=== PATIENT | female | born 1960 | race Caucasian/White ===

== ENCOUNTER 2020-11-24 15:03 | Emergency (ER) | payer BC, MEDICARE ==
--- NOTE | 2020-11-24 16:09 | EDM.PDOC ---
ED HPI GENERAL MEDICAL PROBLEM - General Chief Complaint: Neck Problem Stated Complaint: NECK PAIN Time Seen by Provider: 11/24/20 16:08 Source of Information: Reports: Patient, Family (daughter and ), RN History Limitations: Reports: Physical Impairment (due to severity of pain) - History of Present Illness INITIAL COMMENTS - FREE TEXT/NARRATIVE: Tawnya is a 60 year old female whom appears in acute distress due to neck muscle spasms and pain. Tawnya has a history of headache with previous chiari malformation repair and neck fusion with plate and rods, around 10 or more years ago. Tawnya step out of the back of a truck 2 days ago resulting in severe exacerbation of posterior neck pain. Tawnya has been unable o sleep for the last 2-3 days due to pain. Tawnya has taken Tylenol and Flexeril for pain with minimal improvement. Tawnya reports being unable to take NSAIDs due to kidney concerns. Steroids due to Psoriasis concerns. Tawnya get ill n/v with morphine or Per cocet. Tawnya's and daughter are forceful in demands and requests which are at time unreasonable. - Related Data Home Meds: Home Meds Acetaminophen/oxyCODONE [Percocet 325-5 MG] 1 - 2 each PO Q6H PRN 5 Days #20 tab 11/24/20 [Rx] Amitriptyline [Elavil] 1 tab PO DAILY 11/24/20 [History] Apremilast [Otezla] 1 tab PO BID 11/24/20 [History] LORazepam [Ativan] 1 mg PO Q8H PRN 10 Days #20 tab 11/24/20 [Rx] Levothyroxine [Synthroid] 1 tab PO DAILY 11/24/20 [History] Omeprazole 1 tab PO DAILY 11/24/20 [History] Ondansetron [Zofran ODT] 4 mg PO Q6H PRN 2 Days #20 tab.dis 11/24/20 [Rx] Pregabalin 1 tab PO TID 11/24/20 [History] Venlafaxine [Effexor] 1 tab PO DAILY 11/24/20 [History] atorvaSTATin [Lipitor] 1 tab PO DAILY 11/24/20 [History] ED ROS GENERAL - Review of Systems Review Of Systems: Comprehensive ROS is negative, except as noted in HPI. ED EXAM, UPPER BACK/NECK PAIN - Physical Exam Exam: See Below Text/Narrative:: Tawnya's is very reluctant to allow any type of physical examination of Tawnya's neck during ER visit. General Appearance: Alert, WD/WN, Anxious, Severe Distress, Thin Eye Exam: Bilateral Eye: Normal Inspection Ears Exam: Hearing Grossly Normal Nose Exam: Normal Inspection Throat/Mouth Exam: Normal Voice, No Airway Compromise Cardiovascular/Respiratory: Normal Peripheral Pulses Extremities: Normal Range of Motion Neurologic: No Motor/Sensory Deficits, Alert, Oriented x 3 Psychiatric: Anxious, Tearful Skin Exam: Normal Color, Warm/Dry Course - Vital Signs Last Recorded V/S: Last Vital Signs Temp 36.4 C 11/24/20 16:18 Pulse 99 11/24/20 16:18 Resp 18 11/24/20 16:18 BP 140/77 11/24/20 16:18 Pulse Ox 97 11/24/20 16:18 - Orders/Labs/Meds Orders: Active Orders 24 hr Category Date Time Status Overnight Pulse Oximetry [RC] Click to Edit Care 11/24/20 16:18 Active Peripheral IV Care [RC] . DIRECTED Care 11/24/20 16:17 Active Sodium Chloride 0.9% [Saline Flush] Med 11/24/20 16:17 Active 10 ml FLUSH ASDIRECTED PRN Peripheral IV Insertion Adult [OM.PC] Urgent Oth 11/24/20 16:16 Ordered Pulse Oximetry Continuous Monitoring [OM.PC] Routine Oth 11/24/20 16:18 Ordered Medication Orders Sodium Chloride (Sodium Chloride 0.9% 10 Ml Syringe) 10 ml FLUSH ASDIRECTED PRN PRN Reason: Keep Vein Open Last Admin: 11/24/20 16:41 Dose: 10 ml Documented by: SUSAN Labs: Laboratory Tests 11/24/20 11/24/20 Range/Units 16:29 16:29 ESR 52 H (0-25) mm/hr C-Reactive Protein 4.03 H (0.0-0.3) mg/dL Meds: Medications Generic Name Dose Route Start Last Admin Trade Name Freq PRN Reason Stop Dose Admin Sodium Chloride 10 ml 11/24/20 16:17 11/24/20 16:41 Sodium Chloride 0.9% 10 Ml Syringe FLUSH 10 ml ASDIRECTED PRN Administration Keep Vein Open Discontinued Medications Generic Name Dose Route Start Last Admin Trade Name Freq PRN Reason Stop Dose Admin Hydromorphone HCl 0.5 mg 11/24/20 16:16 11/24/20 16:41 Hydromorphone 0.5 Mg/0.5 Ml Syringe IVPUSH 11/24/20 16:17 0.5 mg ONETIME ONE Administration Ketorolac Tromethamine 30 mg 11/24/20 16:16 11/24/20 16:40 Ketorolac 30 Mg/Ml Sdv IVPUSH 11/24/20 16:17 30 mg ONETIME ONE Administration Lorazepam 1 mg 11/24/20 16:17 11/24/20 16:39 Lorazepam 2 Mg/Ml Sdv IVPUSH 11/24/20 16:18 1 mg ONETIME ONE Administration Ondansetron HCl 4 mg 11/24/20 16:16 11/24/20 16:39 Ondansetron 4 Mg/2 Ml Sdv IVPUSH 11/24/20 16:17 4 mg ONETIME ONE Administration - Re-Assessments/Exams Free Text/Narrative Re-Assessment/Exam: Reassessment found patient snoring in recliner with family at bedside. Will allow patient to sleep until CT results are available. 11/24/20 18:11 CT results available noting no acute traumatic findings to explain symptoms which are likely muscle spasms causing pain which is more difficult to control. [facility] prescribers website reviewed which confirmed on prescription for Oxycodone and chronic Lyrica medication use. per history reported. 11/24/20 18:31 Departure - Departure Time of Disposition: 19:15 Disposition: Home, Self-Care 01 Clinical Impression: Cervical paraspinous muscle spasm, Headache, Neck pain, acute, H/O neck surgery - Discharge Information Prescriptions: LORazepam [Ativan] 1 mg PO Q8H PRN 10 Days #20 tab PRN Reason: spasms Acetaminophen/oxyCODONE [Percocet 325-5 MG] 1 - 2 each PO Q6H PRN 5 Days #20 tab PRN Reason: pain Ondansetron [Zofran ODT] 4 mg PO Q6H PRN 2 Days #20 tab.dis PRN Reason: Vomiting Instructions: Cervicogenic Headache, Spasticity, Muscle Cramps and Spasms, Pain Medicine Instructions, [id number], Cervical Sprain, Cervical Strain and Sprain Rehab-SportsMed, Acute Torticollis, Adult Referrals: RAMYA COLEMAN [Other] Forms: ED Department Discharge Additional Instructions: 1. Continued current medications, added addition medication with caution. 2. Ativan 1mg every 12hrs as needed for muscle spasms, pain and anxiety due to pain. #20 3. Percocet 5/325mg 1 tablet for moderate to severe pain 2 tablets for severe pain. #20 [address] and ensure someone is around when you take additional medications due to risk of sedation. 5. Contact primary client care consultant or pain management provider regarding acute exacerbation of chronic pain with normal CT scan of head and cervical spine 6. Return to ER if numbness, tingling weakness, loss of bowel or bladder function which would indicate central nerve impingement. Sepsis Event Note (ED) - Focused Exam Vital Signs: Vital Signs Temp Pulse Resp BP Pulse Ox 11/24/20 16:18 36.4 C 99 18 140/77 97 11/24/20 15:43 36.4 C 99 18 140/77 97 - My Orders Last 24 Hours: My Active Orders 11/24/20 16:16 Peripheral IV Insertion Adult [OM.PC] Urgent 11/24/20 16:17 Peripheral IV Care [RC] . DIRECTED Sodium Chloride 0.9% [Saline Flush] 10 ml FLUSH ASDIRECTED PRN 11/24/20 16:18 Overnight Pulse Oximetry [RC] Click to Edit Pulse Oximetry Continuous Monitoring [OM.PC] Routine - Assessment/Plan Last 24 Hours: My Active Orders 11/24/20 16:16 Peripheral IV Insertion Adult [OM.PC] Urgent 11/24/20 16:17 Peripheral IV Care [RC] . DIRECTED Sodium Chloride 0.9% [Saline Flush] 10 ml FLUSH ASDIRECTED PRN 11/24/20 16:18 Overnight Pulse Oximetry [RC] Click to Edit Pulse Oximetry Continuous Monitoring [OM.PC] Routine
[2020-11-24] MEDS ORDERED: Ondansetron 4 MG/2 ML SDV IVPUSH ONE (16:16)
[2020-11-24] MEDS ORDERED: Ketorolac 30 MG/ML SDV IVPUSH ONE (16:16)
[2020-11-24] MEDS ORDERED: HYDROmorphone 0.5 MG/0.5 ML Syringe IVPUSH ONE (16:16)
[2020-11-24] MEDS ORDERED: LORazepam 2 MG/ML SDV IVPUSH ONE (16:17)
[2020-11-24] MEDS ORDERED: Sodium Chloride 0.9% 10 ML Syringe FLUSH PRN (16:17)
--- NOTE | 2020-11-24 18:17 | CRLCT ---
For Patients: As a result of the Century Cures Act, medical imaging exams and procedure reports are released immediately into your electronic medical record. You may view this report before your referring provider. If you have questions, please contact your health care provider. INDICATION: Headache and neck pain. History of Chiari malformation, neck fusion and aneurysm surgery. TECHNIQUE: CT cervical spine without contrast. COMPARISON: None FINDINGS: Vertebrae: Alignment is normal. There is multilevel anterior and posterior hardware fusion. Hardware appears in satisfactory position. No fracture or suspicious bone lesion. Discs and facet joints: Diffuse degenerative changes throughout the facet joints and disc spaces. Extraspinal findings: Prevertebral soft tissues, visualized airway, and visualized lungs are unremarkable. IMPRESSION: Unremarkable spinal fusion postoperative changes. There is multilevel degenerative spondylosis. No other acute or specific finding to explain pain. Please note that all CT scans at this facility use dose modulation, iterative reconstruction, and/or weight-based dosing when appropriate to reduce radiation dose to as low as reasonably achievable. Dictated by Yvon Ramesh MD @ 11/24/2020 6:15:[address] Yvon Ramesh @ Nov 24 2020 6:15PM
--- NOTE | 2020-11-24 18:21 | CRLCT ---
For Patients: As a result of the Century Cures Act, medical imaging exams and procedure reports are released immediately into your electronic medical record. You may view this report before your referring provider. If you have questions, please contact your health care provider. INDICATION: Headache and neck pain. TECHNIQUE: CT head without contrast. COMPARISON: None. FINDINGS: CSF spaces: Within normal limits for age. Brain parenchyma and extra-axial spaces: The farah-white differentiation is normal. No sign of mass, hemorrhage, or midline shift. No extra-axial fluid collection. Skull base and calvarium: There is dense opacification of the sphenoid sinus. The visualized orbits are grossly unremarkable. No skull fractures. IMPRESSION: 1. No intracranial abnormality. 2. Dense opacification of the sphenoid sinus could represent acute or chronic inflammatory sinus disease. Please note that all CT scans at this facility use dose modulation, iterative reconstruction, and/or weight-based dosing when appropriate to reduce radiation dose to as low as reasonably achievable. Dictated by Yvon Ramesh MD @ 11/24/2020 6:19:[address] Yvon Ramesh @ Nov 24 2020 6:19PM
== END 2020-11-24 19:22 | disposition home or self-care (01) ==
LOC: JP.ED 15:03
DX: M62.838 Other muscle spasm (principal); R51.9 Headache, unspecified; Z87.39 Personal history of other diseases of the musculoskeletal system and connective tissue; Z79.899 Other long term (current) drug therapy
CPT/HCPCS: 36415; 70450; 72125; 85651; 86140; 96374; 96375; 99284; J1170; J1885; J2060; J2405